=== PATIENT | female | born 1945 | race Caucasian/White ===

== ENCOUNTER 2017-01-27 05:54 | Inpatient (IN) | payer BC ==
[2017-01-12 15:52] VITALS: BMI 34.2
--- NOTE | 2017-01-26 10:17 | HP ---
[facility]ellite [facility] - Chief Complaint Chief Complaint: right hip pain - Past Medical History Allergies/Adverse Reactions: Allergies Allergy/AdvReac Type Severity Reaction Status Date / Time propoxyphene HCl Allergy Swelling Verified 01/12/17 15:27 [From Darvon] propoxyphene napsylate Allergy Swelling Verified 01/12/17 15:27 [From Darvocet-N 100] - Current Medications Current Medications: Home Medications Medication Instructions Recorded Calcium Citrate 600 mg PO DAILY 11/06/11 Fishoil 1 cap PO DAILY 11/06/11 Hydrochlorothiazide [Hctz] 12.5 mg PO HS 11/06/11 Multivits-Min/FA/Lycopene/Lut 1 each PO DAILY 11/06/11 [Centrum Silver Tablet] Potassium Citrate 5 meq PO TID 11/06/11 Simvastatin [Zocor] 20 mg PO HS 11/06/11 Alendronate Na [Fosamax (Weekly)] 1 tab PO WEEKLY 01/12/17 Aspirin [ASA -] 81 mg PO DAILY 01/12/17 Atenolol [Tenormin -] 50 mg PO DAILY 01/12/17 Biotin 10,000 mcg PO DAILY 01/12/17 Cholecalciferol (Vitamin D3) 2,000 unit PO DAILY 01/12/17 [Vitamin D3] Cinnamon Bark [Cinnamon] 1,000 mg PO DAILY 01/12/17 Satellite Physical Exam - Physical Examination General Appearance: Well Nourished, Well Developed, Alert & Oriented x3 ENT: Clear Lung: Normal air movement Heart: Regular rate & rhythm Extremities: Other (right hip- + ttp, dec rom, calf soft, nt ,nvi xrays show severe hip djd) Neurological: Intact, Alert, Oriented Satellite Impression/Plan - Impression/Plan Impression: right hip djd Operative Procedure: right john thr Date to be Performed: 01/27/17
[2017-01-27] MEDS ORDERED: CELECOXIB 200 MG CAPSULE PO ONE (06:05)
[2017-01-27] MEDS ORDERED: GABAPENTIN 300 MG CAPSULE (FP) PO ONE (06:05)
[2017-01-27] MEDS ORDERED: TRANEXAMIC ACID 1000 MG/10 ML VIAL IVPUSH ONE (06:05)
[2017-01-27] MEDS ORDERED: CEFAZOLIN 1 GM/D5W 50 ML IVPB ONE (06:05)
[2017-01-27] MEDS ORDERED: oxyCODONE HCL 10 MG SUSTAINED ACTING TABLET PO ONE (06:05)
[2017-01-27] MEDS ORDERED: BUPIVACAINE HCL/PF (5 MG/ML) 30 ML VIAL IJ ONE ×2 (06:41→08:05)
[2017-01-27] MEDS ORDERED: DEXAMETHASONE SOD PHOSPHATE/PF 10 MG/ML SDV ONE (06:41)
[2017-01-27] MEDS ORDERED: EPINEPHrine/PF 1 MG/1 ML (1:1,000) AMPULE ONE (06:41)
[2017-01-27] MEDS ORDERED: MIDAZOLAM HCL 2 MG/2 ML SINGLE DOSE VIAL ONE (06:41)
[2017-01-27] MEDS ORDERED: ROPIVACAINE HCL 0.5% 30ML VIAL ONE (07:33)
[2017-01-27] MEDS ORDERED: ceFAZolin SODIUM 1 GM VIAL ONE ×4 (07:36→08:48)
[2017-01-27] MEDS ORDERED: VANCOMYCIN 1,000 MG VIAL (RESTRICTED TO ID ONLY) ONE (07:36)
[2017-01-27] MEDS ORDERED: ROPIVICAINE 0.2%/MORPH PF/KETOROLAC - 51ML DISP.SYRINGE IA ONE (07:36)
[2017-01-27] MEDS ORDERED: SUCCINYLCHOLINE CHLORIDE 200 MG/10 ML VIAL ONE (08:01)
[2017-01-27] MEDS ORDERED: PROPOFOL 20 ML ONE (08:40)
[2017-01-27] MEDS ORDERED: ROCURONIUM BROMIDE 50 MG/5 ML VIAL ONE (08:40)
[2017-01-27] MEDS ORDERED: ePHEDrine SULFATE 50 MG/1 ML AMPULE ONE (08:51)
[2017-01-27] MEDS ORDERED: TRANEXAMIC ACID 1000 MG/10 ML VIAL ONE (08:53)
[2017-01-27] MEDS ORDERED: ONDANSETRON 4 MG/2 ML VIAL ONE (09:10)
[2017-01-27] MEDS ORDERED: DEXAMETHASONE SOD PHOSPHATE 4 MG/1 ML VIAL ONE (09:11)
[2017-01-27] MEDS ORDERED: NEOSTIGMINE METHYLSULFATE 0.5 MG/ML - 10 ML MDV ONE ×3 (10:11)
[2017-01-27] MEDS ORDERED: GLYCOPYRROLATE 0.2 MG/1 ML VIAL ONE (10:12)
[2017-01-27] MEDS ORDERED: MAGNESIUM HYDROX 2400MG/30ML ORAL SUSPENSION 30 ML CUP PO PRN (10:14)
[2017-01-27] MEDS ORDERED: ONDANSETRON 4 MG/2 ML VIAL IVPB PRN (10:14)
[2017-01-27] MEDS ORDERED: MAG HYDROX/AL HYDROX/SIMETH 30 ML UNIT-DOSE CUP PO PRN (10:14)
[2017-01-27] MEDS ORDERED: LACTATED RINGERS SOLUTION 1,000 ML IV SCH (10:15)
--- NOTE | 2017-01-27 10:19 | OP ---
Operative Note - Note: Operative Date: 01/27/17 (edda) Pre-Operative Diagnosis: right hip djd Operation: right john thr Post-Operative Diagnosis: Same as Pre-op Surgeon: Brian Calvo Night Shift: Mendez Lua) Anesthesia: Spinal, Local Specimens Removed: femoral head Estimated Blood Loss (mls): 200 Operative Report Dictated: Yes
[2017-01-27] MEDS ORDERED: oxyCODONE HCL 5 MG TABLET PO PRN ×2 (10:28)
[2017-01-27] MEDS: ACETAMINOPHEN 1000 MG/100 ML VIAL (NON FORMULARY) IVPB ONE (10:45)
[2017-01-27] MEDS ORDERED: POTASSIUM CITRATE 5 MEQ PO SCH (14:00)
[2017-01-27] MEDS: CEFAZOLIN 2 GM/D5W 50 ML IVPB SCH (18:00)
[2017-01-27] MEDS: ATORVASTATIN CA 10 MG TABLET (FP) PO SCH (21:46)
[2017-01-27] MEDS: HYDROCHLOROTHIAZIDE 12.5 MG CAPSULE (FP) PO SCH (21:46)
[2017-01-27] MEDS: SENNOSIDES/DOCUSATE COMBO (SENNA PLUS) TABLET (UD) PO SCH (21:47)
[2017-01-27] MEDS: GABAPENTIN 300 MG CAPSULE (FP) PO SCH (21:47)
[2017-01-27] MEDS ORDERED: PATIENT'S OWN MEDICATION (NON-FORMULARY) (Simvastatin [Zocor] 20 MG) PO SCH (22:00)
[2017-01-28] MEDS: CEFAZOLIN 2 GM/D5W 50 ML IVPB SCH (00:15)
--- NOTE | 2017-01-28 07:33 | PN ---
Progress Note (short form) - Note Progress Note: Ortho Pt seen and examined s/p right john thr pod #1 Selected Entries 01/28/17 05:17 Temperature 98.5 F Pulse Rate 58 L Respiratory 18 Rate Blood Pressure 107/55 dressing c/d/i, calf soft, nt nvi cbc pending a/p PT dvt ppx pain control d/c home tomorrow if stable
[2017-01-28] MEDS: ASPIRIN 325 MG TABLET PO SCH (08:03)
--- NOTE | 2017-01-28 08:41 | SPEC ---
DATE OF OPERATION: 01/27/2017 PREOPERATIVE DIAGNOSIS: Degenerative Joint Disease, Right Hip POSTOPERATIVE DIAGNOSIS: Degenerative Joint disease, Right Hip PROCEDURE: Right Total Hip Replacement with Robotic Arm Navigation Assistance (Makoplasty) SURGICAL ATTENDING: Brian Calvo MD RETAIL KEY HOLDER: Mendez Lua MD and GRAYSON Church ANESTHESIA: Regional and spinal. CLOSURE: A 44 PSL Press-Fit cup, an MDM liner and head, a No. 3 stem, Accolade II, No. 1 Vicryl for fascia, 0 and 2-0 subcutaneous, 3-0 Monocryl subcuticular for skin with skin glue, 4-0 undyed Vicryl for skin sites. ESTIMATED BLOOD LOSS: Less Than 150 mL. COMPLICATIONS: None. CONDITION: To recovery room in stable condition. DESCRIPTION OF OPERATIVE PROCEDURE: The patient was taken to the operating room. Spinal anesthesia as well as sciatic block was administered by the anesthesiologist. The IV Kefzol and TXA were administered prophylactically prior to the case. The patient was placed in the lateral decubitus position with all prominences well-padded. An EKG pad was secured to the inferior pole of the patella for limb length calculations intraoperatively. The right hip area was prepped and draped in the usual sterile fashion. A 12.0-15.0 cm curved longitudinal incision over the posterolateral aspect of the greater trochanter was made. Hemostasis was achieved with Bovie cautery. Sharp dissection was carried down to the level of the fascia. The fascia was opened the entire length of the incision, spreading the gluteus samir fibers in the direction of their origin. A Charnley retractor was placed in this layer, and care was taken to be far away from the sciatic nerve. The short external rotators were detached off the insertion of the greater trochanter and peeled off the capsule. A posterior capsulectomy was then performed. A checkpoint was malleted into the greater trochanter. Three small stab incisions were done on the iliac crest. Through these stab incisions, threaded guide pins were drilled into the iliac crest. These pins were fastened to the Navigation array. The check point on the greater trochanter, and the EKG pad on the inferior pole of the patella were used to measure preoperative limb length and offset. The hip was then dislocated. The hip was osteotomized at the appropriate level as directed by the preoperative template. Anterior and posterior retractors were placed around the acetabulum. Circumferential labrum was excised. A checkpoint was malleted into the acetabulum superiorly. The acetabulum was then registered with the Navigation device with multiple sites within the acetabulum and around the rim of the acetabulum. I t was then confirmed popping the blue bubbles, confirming ideal position and confirmation of adequate registration with the Navigation device. Using a 48 reamer, which was decided preoperatively on the preoperative template, the robotic arm was brought into the field and was used to ream the acetabulum down to the appropriate depth with the appropriate orientation and inversion applied. After reaming, a good hemispherical bleeding surface was encountered in the acetabulum. A NAVNEET shell of the appropriate size was then malleted into place achieving excellent fit. Confirmation of the appropriate orientation and inversion was confirmed using the probe, and assuring that the acetabular cup was placed in the ideal position as templated preoperatively. A real liner was then clipped into place with a 10 degree lip in the posterior-superior quadrant. Anterior and posterior osteophytes were removed using osteotome. Next, our attention was directed to the femur. The proximal femur was opened with a box chisel, rat-tail, anchovy and serial reamers. This was done until the appropriate reamer achieved good fit and fill of the proximal femur. A trial reduction with the appropriate neck and head, as again measured from our preoperative template, was performed. Limb lengths were confirmed both visually and using the Navigation device, again measuring the inferior pole of the patella and the checkpoint of the greater trochanter. This confirmed ideal position of the femoral component, lengths and offset. The trial components were removed. The real component was malleted into place. The head was cold-welded to the Charnley and the hip was reduced. Again, the hip was found to have equal limb lengths as described previously. The hip was also taken through a range of motion and found to be stable in external rotation and extension, was stable in marked flexion, stable in adduction and internal rotation, and had a positive hang test and negative telescoping. The hip was irrigated with copious amounts of irrigation. Hemostasis was achieved. Vancomycin powder was sprinkled into the joint. A second dose of TXA was administered. The fascia was closed with No. 1 Vicryl interrupted suture, 0 and 2-0 for subcutaneous, and 3-0 Monocryl subcuticular for skin with skin glue. This was followed by an Aquacel dressing. The patient was flipped into the supine position. Bilateral SCDs and an abduction pillow were applied. X-rays showed good position of the components. The patient was awakened from anesthesia and transferred to the recovery room in stable condition. COMPLICATIONS: None. ESTIMATED BLOOD LOSS: Less than 100 mL. Elvira MEYERS/[id number]
[2017-01-28 09:18] LABS: MCHC 33.8 g/dl (32.0-36.0); MEAN CELL VOLUME 88.7 fl (80-96); MEAN PLT VOLUME 9.2 fl (7.5-11.1); PLATELET COUNT 157 K/MM3 (134-434); RDW 12.9 % (11.6-15.6); WHITE BLOOD COUNT 11.7 K/mm3 (4.0-10.8)
[2017-01-28] MEDS: GABAPENTIN 300 MG CAPSULE (FP) PO SCH ×2 (09:39→21:26)
[2017-01-28] MEDS: PANTOPRAZOLE 40 MG TABLET (FP) PO SCH (09:39)
[2017-01-28] MEDS: SENNOSIDES/DOCUSATE COMBO (SENNA PLUS) TABLET (UD) PO SCH ×2 (09:39→21:25)
[2017-01-28] MEDS: MULTIVITAMINS (DAILY MVI) TABLET (FP) PO SCH (09:39)
[2017-01-28] MEDS: ATENOLOL 50 MG TABLET (FP) PO SCH (09:40)
--- NOTE | 2017-01-28 12:46 | PN ---
Progress Note (short form) - Note Progress Note: Anesthesia postop note S/P Right total hip replacement, POD#1. Spinal and block. Pat seen and examined. Intact sensory and motor function. Ambulationg. Started PT. VSS No apparent post ansesthesia complications.Signed off.
[2017-01-28] MEDS: oxyCODONE HCL 5 MG TABLET PO PRN ×2 (14:03→21:26)
[2017-01-28] MEDS: ACETAMINOPHEN 1000 MG/100 ML VIAL (NON FORMULARY) IVPB ONE (14:03)
[2017-01-28] MEDS: HYDROCHLOROTHIAZIDE 12.5 MG CAPSULE (FP) PO SCH (21:26)
[2017-01-28] MEDS: ATORVASTATIN CA 10 MG TABLET (FP) PO SCH (21:26)
[2017-01-29 06:42] VITALS: BP 98/54; PULSE 71; TEMP 98.6
[2017-01-29 08:04] LABS: MCH 29.7 pg (25.7-33.7); MCHC 33.3 g/dl (32.0-36.0); MEAN PLT VOLUME 9.1 fl (7.5-11.1); PLATELET COUNT 153 K/MM3 (134-434); RDW 13.3 % (11.6-15.6); WHITE BLOOD COUNT 11.5 K/mm3 (4.0-10.8)
--- NOTE | 2017-01-29 08:21 | PN ---
Progress Note (short form) - Note Progress Note: Ortho Pt seen and examined s/p right john thr pod #2 Selected Entries 01/29/17 06:00 Temperature 98.6 F Pulse Rate 71 Respiratory 19 Rate Blood Pressure 98/54 Laboratory Tests 01/29/17 07:30 WBC 11.5 H Hgb 10.2 L Hct 30.5 L Plt Count 153 dressing c/d/i, calf soft, nt nvi a/p PT Hip precautions dvt ppx pain control d/c home today f/u in 1 week
--- NOTE | 2017-01-29 08:32 | DS ---
Physical Examination Vital Signs: Vital Signs Temperature 98.6 F 01/29/17 06:00 Pulse Rate 71 01/29/17 06:00 Respiratory Rate 19 01/29/17 06:00 Blood Pressure 98/54 01/29/17 06:00 O2 Sat by Pulse Oximetry (%) 99 01/29/17 06:38 Labs: CBC, BMP 01/29/17 07:30 Discharge Summary Reason For Visit: OSTEOARTHRITIS Procedures: Principal: s/p right john thr Hospital Course: admitted for elective right john thr, uneventful post-op, stable for d/c Condition: Good - Instructions Diet, Activity, Other Instructions: Post-op Instructions-Total Hip Replacement Call the office for a follow-up appointment in 1 week - [phone] Aspirin 325mg daily for 6 weeks. Pain medication was sent into your pharmacy. Apply Graduated Compression Stockings (TEDs) to both lower extremities- remove daily for hygiene ONLY Apply Sequential Compression Device (SCDs) to both Lower extremities remove for PT and hygiene ONLY Apply cold packs to affected area for 15 minutes every 2 hours. Physical Therapist will come to your home for the first 5 days. You will be set up with outpatient PT at your first post-operative visit. Patient may ambulate as tolerated-encourage self care (at least every 2-3 hours while awake) with walker or cane Maintain Aquacel (waterproof) dressing to operative wound (will be removed by surgeon at first office visit) Shower with Aquacel dressing in place-if Aquacel integrity compromised, remove and apply dry sterile dressing and notify Orthopedist. DO NOT SHOWER unless Orthopedists approves without Aquacel dressing CONTACT THE OFFICE FOR ANY CHANGE IN YOUR CONDITION (for example-fever greater than 102 degrees,excessive bleeding from operative site, purulent drainage, severe swelling or pain) GO TO THE EMERGENCY ROOM IF THERE IS A MEDICAL EMERGENCY Hip Precautions: * Keep a rolled towel under affected heel while in bed or chair (to keep knee in extension) * Dependent upon approach: * Posterior - do not cross legs; do not sit on low chairs or toilets. * If you have any questions, please do not hesitate to call the office - . Referrals: Mendez Lua MD [Staff Physician] - Disposition: VNS/HOME HEALTH CARE - Home Medications Comprehensive Discharge Medication List: Ambulatory Orders Calcium Citrate 600 mg PO DAILY 11/06/11 Fishoil 1 cap PO DAILY 11/06/11 Hydrochlorothiazide [Hctz] 12.5 mg PO HS 11/06/11 Multivits-Min/FA/Lycopene/Lut [Centrum Silver Tablet] 1 each PO DAILY 11/06/11 Potassium Citrate 5 meq PO TID 11/06/11 Simvastatin [Zocor] 20 mg PO HS 11/06/11 Alendronate Na [Fosamax (Weekly)] 1 tab PO WEEKLY 01/12/17 Atenolol [Tenormin -] 50 mg PO DAILY 01/12/17 Biotin 10,000 mcg PO DAILY 01/12/17 Cholecalciferol (Vitamin D3) [Vitamin D3] 2,000 unit PO DAILY 01/12/17 Cinnamon Bark [Cinnamon] 1,000 mg PO DAILY 01/12/17 Aspirin [ASA -] 325 mg PO DAILY@0800 tablet 01/27/17 Oxycodone HCl/Acetaminophen [Percocet 5-325 mg Tablet -] 1 - 2 tab PO Q6H #50 tab MDD 8 01/27/17
[2017-01-29] MEDS: GABAPENTIN 300 MG CAPSULE (FP) PO SCH (09:28)
[2017-01-29] MEDS: ASPIRIN 325 MG TABLET PO SCH (09:28)
[2017-01-29] MEDS: oxyCODONE HCL 5 MG TABLET PO PRN (09:29)
[2017-01-29] MEDS: PANTOPRAZOLE 40 MG TABLET (FP) PO SCH (09:29)
[2017-01-29] MEDS: SENNOSIDES/DOCUSATE COMBO (SENNA PLUS) TABLET (UD) PO SCH (09:29)
[2017-01-29] MEDS: MULTIVITAMINS (DAILY MVI) TABLET (FP) PO SCH (09:30)
[2017-01-29] MEDS: ATENOLOL 50 MG TABLET (FP) PO SCH (09:31)
--- NOTE | 2017-01-29 16:26 | PATH ---
Surgical Pathology Report Patient Name: MARVA AGRRISON Med. Rec. #: [id number] /Age/Gender: 1945 (Age: 71) / F Account: [id number] Location: [facility] Taken: 01/27/2017 Received: 01/27/2017 Reported: 01/29/2017 Physicians: Mendez Lua M.D. Specimen(s) Received RIGHT FEMORAL HEAD Clinical History Right hip osteoarthritis Final Diagnosis BONE, RIGHT FEMORAL HEAD, REPLACEMENT: DEGENERATIVE JOINT DISEASE. Electronically Signed Rolan Nunes M.D. Gross Description Received in formalin, labeled "right femoral head," is a 3.8 x 3.8 x 3.7 cm. femoral head with a 0.8 cm in length portion of femoral neck attached. The margin of resection is smooth. There is a 1.4 cm in greatest dimension area of eburnation present. The remaining articular surface is [place]-yellow and diffusely granular and nodular. The underlying trabecular bone is yellow and hard. A passenger relations representative section is submitted in one cassette, following decalcification. 01/28/2017 [facility]01/28/2017
== END 2017-01-29 11:52 | disposition home health service (06) | DRG 470 ==
LOC: FM/S 05:54
PROVIDERS: ADMIT Orthopaedic Surgery; ATTEND Orthopaedic Surgery
PROC: 8E0W0CZ Robotic Assisted Procedure of Trunk Region, Open Approach (ICD-10-PCS; 2017-01-27)
PROC: 0SR90JZ Replacement of Right Hip Joint with Synthetic Substitute, Open Approach (ICD-10-PCS; principal; 2017-01-27 09:02)
DX: M16.11 Unilateral primary osteoarthritis, right hip (principal); I10 Essential (primary) hypertension; E66.9 Obesity, unspecified; Z68.34 Body mass index [BMI] 34.0-34.9, adult
CPT/HCPCS: 36415; 73502-TC-RT; 85027; 86803; 88304-TC; 88311-TC; 94010; 94760; 97116-GP; 97162-GP

== ENCOUNTER 2021-11-08 05:51 | Inpatient (IN) | payer OTHER, BC ==
[2021-11-06 11:17] VITALS: BMI 35.2
[2021-11-08] MEDS ORDERED: TRANEXAMIC ACID 1000 MG/10 ML VIAL IVPUSH ONE (06:32)
[2021-11-08] MEDS ORDERED: CELECOXIB 200 MG CAPSULE PO ONE (06:32)
[2021-11-08] MEDS ORDERED: CEFAZOLIN 2 GM in DEXTROSE 5%-WATER - 50 ML IVPB ONE (06:32)
[2021-11-08] MEDS ORDERED: BUPIVACAINE HCL/PF 0.5% (5 MG/ML) 30 ML VIAL IJ ONE (07:19)
[2021-11-08] MEDS ORDERED: MIDAZOLAM HCL 2 MG/2 ML SINGLE DOSE VIAL ONE (07:19)
[2021-11-08] MEDS ORDERED: DEXAMETHASONE SOD PHOSPHATE 10 MG/1 ML VIAL ONE (07:20)
[2021-11-08] MEDS ORDERED: VANCOMYCIN 1,000 MG VIAL (RESTRICTED TO ID ONLY) ONE (07:49)
[2021-11-08] MEDS ORDERED: ceFAZolin SODIUM 1 GM VIAL ONE ×3 (07:49→16:06)
[2021-11-08] MEDS ORDERED: LACTATED RINGERS SOLUTION 1,000 ML IV SCH (08:00)
[2021-11-08] MEDS ORDERED: ONDANSETRON 4 MG/2 ML VIAL IVPUSH PRN (08:00)
[2021-11-08] MEDS ORDERED: MAG HYDROX/AL HYDROX/SIMETH 30 ML UNIT-DOSE CUP PO PRN (08:00)
[2021-11-08] MEDS ORDERED: TRANEXAMIC ACID 1000 MG/10 ML VIAL ONE ×2 (08:25→09:31)
[2021-11-08] MEDS ORDERED: PHENYLEPHRINE HCL 10 MG/1 ML SINGLE DOSE VIAL ONE (08:57)
[2021-11-08] MEDS ORDERED: oxyCODONE HCL 5 MG TABLET PO PRN (09:54)
[2021-11-08] MEDS ORDERED: ACETAMINOPHEN 1000 MG/100 ML BAG IVPB ONE (09:54)
[2021-11-08] MEDS ORDERED: ACETAMINOPHEN INJECTION 100 ML IVPB ONE (10:03)
[2021-11-08] MEDS: KETOROLAC TROMETHAMINE 30 MG/1 ML VIAL IVPUSH SCH ×2 (10:20→16:25)
[2021-11-08] MEDS ORDERED: KETOROLAC TROMETHAMINE 30 MG/1 ML VIAL ONE (10:22)
[2021-11-08] MEDS: HYDROCHLOROTHIAZIDE 25 MG TABLET (FP) PO SCH (13:20)
[2021-11-08] MEDS: oxyCODONE HCL 10 MG SUSTAINED ACTING TABLET PO SCH ×2 (13:20→21:49)
[2021-11-08] MEDS: MULTIVITAMINS (DAILY MVI) TABLET (FP) PO SCH (13:21)
[2021-11-08] MEDS: PANTOPRAZOLE 40 MG TABLET PO SCH (13:21)
[2021-11-08] MEDS ORDERED: DEXTROSE 5%-WATER - 50 ML IVPB ONE (16:07)
[2021-11-08] MEDS: CEFAZOLIN 2 GM in DEXTROSE 5%-WATER - 50 ML IVPB SCH (16:24)
[2021-11-08] MEDS: ACETAMINOPHEN 500 MG TABLET (FP) PO SCH (18:41)
[2021-11-08] MEDS: SENNOSIDES/DOCUSATE COMBO (SENNA PLUS) TABLET (UD) PO SCH (21:49)
[2021-11-08] MEDS: ATORVASTATIN CA 10 MG TABLET (FP) PO SCH (21:49)
[2021-11-08] MEDS ORDERED: PATIENT'S OWN MEDICATION (NON-FORMULARY) (Simvastatin [Zocor] 20 MG Tablet) PO SCH (22:00)
[2021-11-09] MEDS ORDERED: ceFAZolin SODIUM 1 GM VIAL ONE (00:08)
[2021-11-09] MEDS ORDERED: DEXTROSE 5%-WATER - 50 ML IVPB ONE (00:08)
[2021-11-09] MEDS: CEFAZOLIN 2 GM in DEXTROSE 5%-WATER - 50 ML IVPB SCH (00:35)
[2021-11-09] MEDS: ACETAMINOPHEN 500 MG TABLET (FP) PO SCH ×4 (00:37→17:57)
[2021-11-09] MEDS: ASPIRIN 325 MG TABLET PO SCH (08:44)
[2021-11-09 09:59] LABS: HEMATOCRIT 29.7 % (32.4-45.2); HEMOGLOBIN 10.1 GM/dL (10.7-15.3); MCH 30.2 pg (25.7-33.7); MCHC 34.1 g/dl (32.0-36.0); MEAN CELL VOLUME 88.6 fl (80-96); MEAN PLT VOLUME 8.8 fl (7.5-11.1); PLATELET COUNT 160 10^3/uL (134-434); RBC 3.35 M/mm3 (3.60-5.2); RDW 13.8 % (11.6-15.6); WHITE BLOOD COUNT 9.5 K/mm3 (4.0-10.0)
[2021-11-09] MEDS: MULTIVITAMINS (DAILY MVI) TABLET (FP) PO SCH (10:04)
[2021-11-09] MEDS: PANTOPRAZOLE 40 MG TABLET PO SCH (10:04)
[2021-11-09] MEDS: HYDROCHLOROTHIAZIDE 25 MG TABLET (FP) PO SCH ×2 (10:05→10:07)
[2021-11-09] MEDS: SENNOSIDES/DOCUSATE COMBO (SENNA PLUS) TABLET (UD) PO SCH ×2 (10:05→21:29)
[2021-11-09] MEDS: ATENOLOL 50 MG TABLET (FP) PO SCH ×2 (10:05→10:07)
[2021-11-09] MEDS: oxyCODONE HCL 10 MG SUSTAINED ACTING TABLET PO SCH ×2 (10:05→21:29)
[2021-11-09] MEDS: oxyCODONE HCL 5 MG TABLET PO PRN (17:58)
[2021-11-09] MEDS: ATORVASTATIN CA 10 MG TABLET (FP) PO SCH (21:29)
[2021-11-10] MEDS: ACETAMINOPHEN 500 MG TABLET (FP) PO SCH ×3 (00:13→12:08)
[2021-11-10] MEDS: oxyCODONE HCL 5 MG TABLET PO PRN (06:47)
[2021-11-10] MEDS: ASPIRIN 325 MG TABLET PO SCH (08:03)
[2021-11-10 09:05] LABS: HEMATOCRIT 29.2 % (32.4-45.2); HEMOGLOBIN 9.8 GM/dL (10.7-15.3); MCH 29.9 pg (25.7-33.7); MCHC 33.6 g/dl (32.0-36.0); MEAN CELL VOLUME 88.8 fl (80-96); MEAN PLT VOLUME 8.8 fl (7.5-11.1); PLATELET COUNT 157 10^3/uL (134-434); RBC 3.29 M/mm3 (3.60-5.2); RDW 13.9 % (11.6-15.6); WHITE BLOOD COUNT 11.8 K/mm3 (4.0-10.0)
[2021-11-10] MEDS: HYDROCHLOROTHIAZIDE 25 MG TABLET (FP) PO SCH (09:22)
[2021-11-10] MEDS: MULTIVITAMINS (DAILY MVI) TABLET (FP) PO SCH (09:22)
[2021-11-10] MEDS: SENNOSIDES/DOCUSATE COMBO (SENNA PLUS) TABLET (UD) PO SCH (09:22)
[2021-11-10] MEDS: oxyCODONE HCL 10 MG SUSTAINED ACTING TABLET PO SCH (09:23)
[2021-11-10] MEDS: ATENOLOL 50 MG TABLET (FP) PO SCH (09:24)
[2021-11-10] MEDS: PANTOPRAZOLE 40 MG TABLET PO SCH (09:24)
[2021-11-10 09:26] VITALS: BP 91/55; PULSE 84; TEMP 98
[2021-11-10] MEDS ORDERED: FLUTICASONE PROP 0.05% 16 GM NASAL SPRAY NS SCH (11:15)
== END 2021-11-10 12:09 | disposition home health service (06) | DRG 470 ==
LOC: FM/S 05:51
PROVIDERS: ADMIT Orthopaedic Surgery; ATTEND Orthopaedic Surgery
PROC: 8E0Y0CZ Robotic Assisted Procedure of Lower Extremity, Open Approach (ICD-10-PCS; 2021-11-08)
PROC: 0SRB0JA Replacement of Left Hip Joint with Synthetic Substitute, Uncemented, Open Approach (ICD-10-PCS; principal; 2021-11-08 08:33)
DX: M16.12 Unilateral primary osteoarthritis, left hip (principal); I10 Essential (primary) hypertension; E78.5 Hyperlipidemia, unspecified
CPT/HCPCS: 36415; 73502-TC-LT-FY; 85027; 88305-TC; 88311-TC; 94760; 97010-GP; 97116-GP; 97162-GP; C9803-CS; J1100; U0003; U0005

== ENCOUNTER 2023-05-30 12:06 | Emergency (ER) | payer OTHER, BC ==
[2023-05-30 12:17] VITALS: BP 124/85; PULSE 68; RESP 22; TEMP 98.1; BMI 35.2
== END 2023-05-30 12:30 | disposition left against medical advice (07) ==
LOC: JER 12:06
DX: M62.830 Muscle spasm of back (principal)
CPT/HCPCS: 99281-25

== ENCOUNTER 2023-05-30 13:00 | Emergency (ER) | payer OTHER, BC ==
[2023-05-30 13:29] VITALS: BP 116/62; PULSE 60; RESP 20; TEMP 97.8; BMI 35.2
[2023-05-30] MEDS ORDERED: METHOCARBAMOL 500 MG TABLET PO ONE (13:32)
[2023-05-30] MEDS ORDERED: KETOROLAC TROMETHAMINE 15 MG/ML VIAL IM ONE (13:32)
[2023-05-30] MEDS ORDERED: LIDOCAINE 5% TOPICAL PATCH TP ONE (13:32)
[2023-05-30] MEDS ORDERED: METHOCARBAMOL 500 MG TABLET ONE (13:34)
[2023-05-30] MEDS ORDERED: KETOROLAC TROMETHAMINE 15 MG/ML VIAL ONE (13:35)
[2023-05-30] MEDS ORDERED: LIDOCAINE 5% TOPICAL PATCH ONE (13:35)
[2023-05-30] MEDS ORDERED: FAMOTIDINE 10 MG TABLET PO ONE (14:59)
[2023-05-30] MEDS ORDERED: MAG HYDROX/AL HYDROX/SIMETH 30 ML UNIT-DOSE CUP PO ONE (14:59)
[2023-05-30] MEDS ORDERED: FAMOTIDINE 20 MG TABLET ONE (15:18)
[2023-05-30] MEDS ORDERED: MAG HYDROX/AL HYDROX/SIMETH 30 ML UNIT-DOSE CUP ONE (15:19)
[2023-05-30] MEDS ORDERED: morphine SULFATE 4 MG/ML VIAL IM ONE (15:30)
[2023-05-30] MEDS ORDERED: morphine SULFATE 4 MG/ML VIAL ONE (15:33)
[2023-05-30] MEDS ORDERED: diazePAM 5 MG TABLET PO ONE (16:36)
[2023-05-30] MEDS ORDERED: ONDANSETRON *ODT* 4 MG TABLET SL ONE (16:45)
[2023-05-30] MEDS ORDERED: ONDANSETRON *ODT* 4 MG TABLET ONE (16:48)
[2023-05-30] MEDS ORDERED: diazePAM 5 MG TABLET ONE (16:48)
[2023-05-30] MEDS ORDERED: LIDOCAINE PATCH REMOVAL MC SCH (22:00)
== END 2023-05-30 17:58 | disposition home or self-care (01) ==
LOC: FER 13:00
PROC: 3E0233Z Introduction of Anti-inflammatory into Muscle, Percutaneous Approach (ICD-10-PCS; principal; 2023-05-30)
PROC: 3E023GC Introduction of Other Therapeutic Substance into Muscle, Percutaneous Approach (ICD-10-PCS; 2023-05-30)
DX: M54.50 Low back pain, unspecified (principal)
CPT/HCPCS: 71045-TC-FY; 99284-25; Q0162